=== PATIENT | female | born 1985 ===

== ENCOUNTER 2021-07-21 09:39 | Emergency (ER) | payer BC ==
[2021-07-21] MEDS ORDERED: Sodium Chloride 0.9% 1,000 ML IV ONE (10:03)
[2021-07-21 11:25] LABS: BLOOD UREA NITROGEN,BUN 11 mg/dL (7.0-18.0); CARBON DIOXIDE,CO2 24.1 mmol/L (21.0-32.0); CHLORIDE,CL 104 mmol/L (98-107); GLUCOSE RANDOM 93 mg/dL (74-106); LIPASE 83 U/L (73-393); POTASSIUM,K 3.8 mmol/L (3.5-5.1); SODIUM,NA 139 mmol/L (136-145)
[2021-07-21] MEDS ORDERED: Alum Hydro/Mag Hydro/Simeth XS 15 ML, Lidocaine 2% 5 ML PO ONE ×2 (11:52)
[2021-07-21 12:41] VITALS: BP 106/72; PULSE 87
== END 2021-07-21 12:46 | disposition home or self-care (01) ==
LOC: MW.ED 09:39
DX: R10.11 Right upper quadrant pain (principal); Z20.822 Contact with and (suspected) exposure to COVID-19
CPT/HCPCS: 36415; 71045; 80053; 81001; 81025; 83690; 84484; 85025; 85379; 87086; 87635; 93005; 99284; A9270; J7030; 93010; 99282; U0002